=== PATIENT | female | born 1960 | race Caucasian/White ===

== ENCOUNTER 2017-11-23 07:34 | Emergency (ER) | payer OTHER ==
[~2017-11-23] VITALS: Ht 165.1 cm; Wt 102.5 kg
[~2017-11-23 07:34] MED LIST: ALBU90OI; ALBU90OI6 INH; ALBU90OI61 INH; ASPI81EC; Advair Hfa 230-12 GM INH; C-PAP; C-PAP AT NIGHT; CETI10; CETI10 PO; CHOL10002 PO; CLIN300 PO; CLON.5; CONESTTC PV; DICY20; DICY20 PO; DIPATR PO; DULO60 PO; ERGO50000 PO; ESTR.75 PO; FLUT110OIA; FLUT110OIA IH; GLIP10 PO; HYDACE10B PO; INSULANI SUBQ; LEVSOD100; LEVSOD88; LEVSOD88 PO; LISI10; LISI5 PO; METF500; METF500 PO; METO50ER PO; MONT10T PO; MORP15ER PO; NAPR500 PO; NEBI10 PO; ONDA8ODT MM; OXYACE5T PO; OXYC10ER PO; PANT20 PO; PANT40; PARO20; PROACE100; PROP20; QUET25; ROPI1 PO; ROPI2 PO; ROSI2; SALM50IP; SCOPTP TOP; TESTOSTERONE; TIZA4; TIZA4 PO; TRAM50; TRIAOI; TRIM100 PO; VICTOZA; VYTORIN 10/20 MG; ZOLM2.5; ZOLM2.5 PO; Zofran4 MG PO; [UNRECOGNIZED DRUG - OTHER]; [UNRECOGNIZED DRUG - OTHER]; [UNRECOGNIZED DRUG - OTHER] PO; [UNRECOGNIZED DRUG - SUPPLY]
[2017-11-23 08:12] LABS: Source, Urine Clean Catch
[2017-11-23 08:22] LABS: BASOPHILS ABSOLUTE AUTO 0.05 K/mm3 (0.00-0.23); BASOPHILS PERCENT AUTO 0 % (0-2); EOSINOPHILS ABSOLUTE AUTO 0.37 K/mm3 (0.00-0.68); EOSINOPHILS PERCENT AUTO 2 % (0-6); Hemoglobin 18.5 g/dL (11.5-16.0); IMMATURE GRAN ABSOLUTE AUTO 0.09 K/mm3 (0.00-0.10); IMMATURE GRAN PERCENT AUTO 1 % (0-1); LYMPHOCYTES ABSOLUTE AUTO 5.25 K/mm3 (0.84-5.20); LYMPHOCYTES PERCENT AUTO 31 % (21-46); MONOCYTES PERCENT AUTO 7 % (4-13); Mean Corpuscular HGB 29.6 pg (26.0-34.0); Mean Corpuscular HGB Conc 33.5 g/dL (31.5-36.5); Mean Corpuscular Volume 89 fL (80-100); Mean Platelet Volume 8.9 fL (9.1-12.4); NEUTROPHILS ABSOLUTE AUTO 10.19 K/mm3 (1.96-9.15); NEUTROPHILS PERCENT AUTO 60 % (41-73); Platelet Count 330 K/mm3 (150-400); RDW Coefficient Variation 12.7 % (11.7-14.2); RDW Standard Deviation 41.2 fL (35.1-46.3); Red Blood Cell Count 6.24 M/mm3 (3.80-5.20); White Blood Cell Count 17.05 K/mm3 (4.00-11.30)
[2017-11-23 08:23] LABS: Blood, Urine 1+ (Neg); Glucose Qualitative, Urine 4+ (Neg); Ketones, Urine 3+ (Neg); Leukocyte Esterase, Urine 1+ (Neg); Nitrite, Urine Neg (Neg); Protein, Urine 3+ (Neg); Urobilinogen, Urine 1+ (Normal)
[2017-11-23 08:24] LABS: Hematocrit 55.2 % (33.0-51.0)
[2017-11-23 08:36] LABS: Appearance, Urine Clear (Clear); Bilirubin, Urine 1+ (Neg); Color, Urine Yellow (P-Yellow)
[2017-11-23 08:37] LABS: Bacteria Few /hpf; Mucus Light (0-Heavy); Red Blood Cells, Urine Not Seen /hpf (0-2); Squamous Epithelial Cells Few /hpf (Few)
[2017-11-23 08:39] LABS: Alanine Aminotransfer (ALT/SGP 42 U/L (12-78); Albumin, Blood 2.9 g/dL (3.4-5.0); Albumin/Globulin Ratio 0.7 (0.8-1.8); Alk Phos 111 U/L (50-136); Anion Gap 13 mmol/L (6-16); Aspartate Aminotrans (AST/SGOT 25 U/L (12-37); Bilirubin, Total 0.7 mg/dL (0.1-1.0); Blood Urea Nitrogen 15 mg/dL (8-24); Bun/Creatinine Ratio 18.6 (12.0-20.0); CO2, Blood 23 mmol/L (21-32); Calcium, Blood 8.9 mg/dL (8.5-10.1); Chloride, Blood 99 mmol/L (98-108); Creatinine, Blood 0.81 mg/dL (0.40-1.00); Globulin, Blood 4.4 g/dL (2.2-4.0); Glomerular Filtration Rate >60 (60-); Glucose, Blood 364 mg/dL (70-99); Potassium, Blood 4.3 mmol/L (3.5-5.5); Sodium, Blood 135 mmol/L (136-145); Total Protein, Blood 7.3 g/dL (6.4-8.2)
[2017-11-23] MEDS ORDERED: Zofran8 MG PO (10:11)
[2017-11-23] MEDS ORDERED: LOPE2C PO (10:11)
== END 2017-11-23 10:44 | disposition home or self-care (01) ==
LOC: ER 07:34
PROVIDERS: Emergency Medicine
DX: E86.0 Dehydration (principal); R11.2 Nausea with vomiting, unspecified; R19.7 Diarrhea, unspecified; Z88.0 Allergy status to penicillin; Z88.8 Allergy status to other drugs, medicaments and biological substances; Z91.030 Bee allergy status; Z88.2 Allergy status to sulfonamides; Z91.040 Latex allergy status; Z79.899 Other long term (current) drug therapy; Z79.891 Long term (current) use of opiate analgesic; E11.9 Type 2 diabetes mellitus without complications; E03.9 Hypothyroidism, unspecified
CPT/HCPCS: 36415; 80053; 81001; 83690; 85025; 87086; 96361; 96374; 96375; 99284; J1200; J2060; J2405; J2765; J3010; J7030; J7120

== ENCOUNTER → 2018-08-08 | Outpatient (CLI) | payer OTHER ==
[~2018-08-08] MED LIST changes: +LOPE2C PO; +Zofran8 MG PO
== END | disposition home or self-care (01) ==
LOC: LAB EV 15:53 → LAB SHORT 15:53
DX: N39.0 Urinary tract infection, site not specified (principal)
CPT/HCPCS: 87086

== ENCOUNTER 2018-12-22 08:58 | Day surgery (SDC) | payer OTHER ==
[~2018-12-22] VITALS: Ht 165.1 cm; Wt 103.6 kg
[~2018-12-22 08:58] MED LIST changes: +GABA100; +GLIP10; +Humalog Mi100 UNIT/4; +INSULANPEN; +Imitrex100 MG; +TOPROL XL200 MG; +Zanaflex4 M1
--- NOTE | 2018-12-22 09:47 | NUR ---
12/22/18 0947 Olga Waddell 3 IV ATTEMPTS FIRST IN RIGHT HAND INFILTRATED SECOND IN RIGHT FOREARM INFILTRATED THIRD IN RIGHT FOREARM SUCCESSFUL
== END 2018-12-22 11:14 | disposition home or self-care (01) ==
LOC: ORSCSDS 08:58
PROVIDERS: Surgery
PROC: 0DJD8ZZ Inspection of Lower Intestinal Tract, Via Natural or Artificial Opening Endoscopic (ICD-10-PCS; principal; 2018-12-22 10:15)
DX: Z12.11 Encounter for screening for malignant neoplasm of colon (principal); Z86.010 Personal history of colon polyps; I10 Essential (primary) hypertension; E11.9 Type 2 diabetes mellitus without complications; G47.33 Obstructive sleep apnea (adult) (pediatric); E66.01 Morbid (severe) obesity due to excess calories; Z68.38 Body mass index [BMI] 38.0-38.9, adult; Z79.84 Long term (current) use of oral hypoglycemic drugs; Z79.899 Other long term (current) drug therapy
CPT/HCPCS: 82947; J2704; J7120

== ENCOUNTER 2019-03-25 11:21 | Emergency (ER) | payer OTHER ==
[~2019-03-25] VITALS: Ht 165.1 cm; Wt 104.3 kg
[2019-03-25 12:08] LABS: Source, Urine Clean Catch
[2019-03-25 12:10] LABS: Bilirubin, Urine Neg (Neg); Blood, Urine Neg (Neg); Glucose Qualitative, Urine 4+ (Neg); Ketones, Urine Neg (Neg); Leukocyte Esterase, Urine Neg (Neg); Nitrite, Urine Neg (Neg); Protein, Urine Neg (Neg); Urobilinogen, Urine NORM (Normal)
[2019-03-25 12:25] LABS: Appearance, Urine Clear (Clear); Color, Urine Yellow (P-Yellow)
[2019-03-25] MEDS ORDERED: KETO10 PO (13:10)
[2019-03-25] MEDS ORDERED: HYDR1TAB94 PO (13:10)
[2019-03-25] MEDS ORDERED: Robaxin-750750 MG PO (13:10)
== END 2019-03-25 13:16 | disposition home or self-care (01) ==
LOC: ER 11:21
PROVIDERS: Physician Assistant
DX: M62.830 Muscle spasm of back (principal); E11.9 Type 2 diabetes mellitus without complications; E03.9 Hypothyroidism, unspecified; Z88.0 Allergy status to penicillin; Z88.1 Allergy status to other antibiotic agents; Z88.2 Allergy status to sulfonamides; Z91.030 Bee allergy status; Z91.040 Latex allergy status; Z88.8 Allergy status to other drugs, medicaments and biological substances; Z79.4 Long term (current) use of insulin; Z79.899 Other long term (current) drug therapy
CPT/HCPCS: 51798; 72070; 72100; 81003; 96372; 99283-25; J1885

== ENCOUNTER 2019-04-03 17:59 | Emergency (ER) | payer OTHER ==
[~2019-04-03] VITALS: Ht 167.6 cm; Wt 105.2 kg
[~2019-04-03 17:59] MED LIST changes: +HYDR1TAB94 PO; +KETO10 PO; +Robaxin-750750 MG PO
[2019-04-03] MEDS ORDERED: BACL10 PO (19:48)
[2019-04-03] MEDS ORDERED: PRED20 PO (19:55)
[2019-04-03] MEDS ORDERED: Robaxin-750750 MG PO (19:55)
== END 2019-04-03 20:20 | disposition home or self-care (01) ==
LOC: ER 17:59
DX: M54.16 Radiculopathy, lumbar region (principal); Z88.0 Allergy status to penicillin; Z88.1 Allergy status to other antibiotic agents; Z91.030 Bee allergy status; Z91.040 Latex allergy status; Z88.2 Allergy status to sulfonamides; Z88.8 Allergy status to other drugs, medicaments and biological substances; Z79.899 Other long term (current) drug therapy; Z79.891 Long term (current) use of opiate analgesic; Z79.4 Long term (current) use of insulin; E11.9 Type 2 diabetes mellitus without complications; E03.9 Hypothyroidism, unspecified
CPT/HCPCS: 96372; 99283-25; J1885; J7512

== ENCOUNTER → 2019-10-06 | Outpatient (CLI) | payer OTHER ==
[~2019-10-06] MED LIST changes: +BACL10 PO; +PRED20 PO
== END ==
LOC: LAB 14:16 → LAB SHORT 14:16 → LAB FUT 10-05 15:00
DX: A04.72 Enterocolitis due to Clostridium difficile, not specified as recurrent (principal)
CPT/HCPCS: 87493; 89055

== ENCOUNTER 2021-06-06 09:40 | Emergency (ER) | payer MEDICARE, BC ==
[~2021-06-06] VITALS: Ht 167.6 cm; Wt 123.4 kg
[2021-06-06 10:38] LABS: Base Excess Venous 0.3 mmol/L; Bicarbonate Venous 25.7 mmol/L (24.0-30.0); PCO2 Venous 28.6 mmHg (38-42); PO2 Venous 142 mmHg (38-42); pH Blood Venous 7.52 (7.34-7.37)
[2021-06-06 10:58] LABS: Alanine Aminotransfer (ALT/SGP 27 U/L (12-78); Albumin, Blood 2.9 g/dL (3.4-5.0); Albumin/Globulin Ratio 0.7 (0.8-1.8); Alk Phos 115 U/L (50-136); Anion Gap 4 mmol/L (6-16); Aspartate Aminotrans (AST/SGOT 42 U/L (12-37); Bilirubin, Total 0.6 mg/dL (0.1-1.0); Blood Urea Nitrogen 12 mg/dL (8-24); Bun/Creatinine Ratio 19.4 (12.0-20.0); CO2, Blood 28 mmol/L (21-32); Calcium, Blood 9.3 mg/dL (8.5-10.1); Chloride, Blood 106 mmol/L (98-108); Creatinine, Blood 0.62 mg/dL (0.40-1.00); Globulin, Blood 4.1 g/dL (2.2-4.0); Glomerular Filtration Rate >60 (60-); Glucose, Blood 113 mg/dL (70-99); Potassium, Blood 3.9 mmol/L (3.5-5.5); Sodium, Blood 138 mmol/L (136-145); Thyroid Stimulating Hormone 0.653 uIU/mL (0.360-4.800); Troponin I <0.015 ng/mL (0.000-0.040)
[2021-06-06 11:27] LABS: BASOPHILS ABSOLUTE AUTO 0.04 K/mm3 (0.00-0.23); BASOPHILS PERCENT AUTO 1 % (0-2); EOSINOPHILS ABSOLUTE AUTO 0.17 K/mm3 (0.00-0.68); EOSINOPHILS PERCENT AUTO 2 % (0-6); Hematocrit 41.7 % (33.0-51.0); Hemoglobin 13.7 g/dL (11.5-16.0); IMMATURE GRAN ABSOLUTE AUTO 0.01 K/mm3 (0.00-0.10); IMMATURE GRAN PERCENT AUTO 0 % (0-1); LYMPHOCYTES ABSOLUTE AUTO 3.13 K/mm3 (0.84-5.20); LYMPHOCYTES PERCENT AUTO 40 % (21-46); MONOCYTES ABSOLUTE AUTO 0.57 K/mm3 (0.16-1.47); MONOCYTES PERCENT AUTO 7 % (4-13); Mean Corpuscular HGB 28.2 pg (26.0-34.0); Mean Corpuscular HGB Conc 32.9 g/dL (31.5-36.5); Mean Corpuscular Volume 86 fL (80-100); Mean Platelet Volume 9.4 fL (9.1-12.4); NEUTROPHILS ABSOLUTE AUTO 3.91 K/mm3 (1.96-9.15); NEUTROPHILS PERCENT AUTO 50 % (41-73); Platelet Count 256 K/mm3 (150-400); RDW Standard Deviation 44.5 fL (35.1-46.3); Red Blood Cell Count 4.85 M/mm3 (3.80-5.20); White Blood Cell Count 7.83 K/mm3 (4.00-11.30)
== END 2021-06-06 14:15 | disposition home or self-care (01) ==
LOC: ER 09:40
PROVIDERS: Emergency Medicine
DX: F41.9 Anxiety disorder, unspecified (principal); E11.9 Type 2 diabetes mellitus without complications; E03.9 Hypothyroidism, unspecified; Z79.899 Other long term (current) drug therapy; Z88.0 Allergy status to penicillin; Z88.2 Allergy status to sulfonamides; Z88.8 Allergy status to other drugs, medicaments and biological substances
CPT/HCPCS: 36415; 71046; 71260; 80053; 82803; 83880; 84443; 84484; 85025; 85379; 93005; 93010; 99285-25; J7030; Q9967

== ENCOUNTER → 2021-07-20 | Outpatient (CLI) | payer MEDICARE, BC | END | disposition home or self-care (01) | LOC: LAB 18:22 → LAB SHORT 18:22 | DX: R30.9 Painful micturition, unspecified (principal) | CPT/HCPCS: 87086 ==

== ENCOUNTER → 2021-08-10 | Outpatient (CLI) | payer MEDICARE, BC | END | disposition home or self-care (01) | LOC: LAB SHORT 10:29 | DX: R10.9 Unspecified abdominal pain (principal) | CPT/HCPCS: 87086 ==

== ENCOUNTER 2021-12-04 07:29 | Day surgery (SDC) | payer MEDICARE, BC ==
[~2021-12-04] VITALS: Ht 167.6 cm; Wt 116.1 kg
[~2021-12-04 07:29] MED LIST changes: +CEPH500 PO; +DIAZ2 PO; +METPRE4DP PO
[2021-12-04] MEDS ORDERED: CETI5 (08:00)
[2021-12-04] MEDS ORDERED: PIOG15 (08:00)
[2021-12-04] MEDS ORDERED: Cyclobenzaprine5 MG (08:01)
[2021-12-04] MEDS ORDERED: TRULANCE3 MG (08:01)
[2021-12-04] MEDS ORDERED: DICLOFENAC SOD100 GM (08:01)
[2021-12-04] MEDS ORDERED: NOVOLIN 70100 UNIT/4 (08:01)
[2021-12-04] MEDS ORDERED: TOPI100 (08:02)
--- NOTE | 2021-12-04 09:53 | NUR ---
12/04/21 0953 Shayna Rojas LATE ENTRY DURING PROCEDURE PT HAD UNINTENTIONAL MOVEMENTS THROUGHOUT THE CASE. RN ASSISTED TO MAINTAIN LEG POSITION. PT WAS INFORMED THAT SHE MAY NOTE SOME REDNESS OR BRUSING. IN PRE AND POST OP PT HAD UNINTENTIONAL MOVEMENTS AT BASELINE. PT STATED THESE MOVEMENT ARE NORMAL FOR HER.
--- NOTE | 2021-12-04 09:53 | NUR ---
12/04/21 0953 Inez Butt PT BACK TO BASELINE REGARDING BACK AND HIP PAIN WELL RESTLESS LEG. PT ABLE TO SELF DRESS AND AMBULATE USING PERSONAL 3 WHEELED WALKER. NO QUESTIONS OR CONCERNS
== END 2021-12-04 09:46 | disposition home or self-care (01) ==
LOC: ORSCSDS 07:29
PROVIDERS: Student in an Organized Health Care Education/Training Program
PROC: 0DBK8ZX Excision of Ascending Colon, Via Natural or Artificial Opening Endoscopic, Diagnostic (ICD-10-PCS; principal; 2021-12-04 08:45)
PROC: 0DBM8ZX Excision of Descending Colon, Via Natural or Artificial Opening Endoscopic, Diagnostic (ICD-10-PCS; principal; 2021-12-04 08:45)
PROC: 0DBN8ZX Excision of Sigmoid Colon, Via Natural or Artificial Opening Endoscopic, Diagnostic (ICD-10-PCS; principal; 2021-12-04 08:45)
DX: R19.7 Diarrhea, unspecified (principal); D12.2 Benign neoplasm of ascending colon; D12.4 Benign neoplasm of descending colon; K57.30 Diverticulosis of large intestine without perforation or abscess without bleeding; E11.9 Type 2 diabetes mellitus without complications; I10 Essential (primary) hypertension; E03.9 Hypothyroidism, unspecified; G47.33 Obstructive sleep apnea (adult) (pediatric); J45.909 Unspecified asthma, uncomplicated; K21.9 Gastro-esophageal reflux disease without esophagitis; E78.5 Hyperlipidemia, unspecified; E66.9 Obesity, unspecified; Z68.41 Body mass index [BMI] 40.0-44.9, adult; Z79.4 Long term (current) use of insulin; Z79.899 Other long term (current) drug therapy
CPT/HCPCS: 82947; 88305; J2704; J7120

== ENCOUNTER → 2022-05-24 | Outpatient (CLI) | payer MEDICARE, BC ==
[~2022-05-24] MED LIST changes: +CETI5; +Cyclobenzaprine5 MG; +DICLOFENAC SOD100 GM; +NOVOLIN 70100 UNIT/4; +PIOG15; +Percocet 5-3251 EACH PO; +TOPI100; +TRULANCE3 MG
[2022-05-24 12:49] LABS: Source, Urine Clean Catch
[2022-05-24 14:06] LABS: Bacteria Mod /hpf; Red Blood Cells, Urine 0-2 /hpf (0-2); Squamous Epithelial Cells Few /hpf (Few)
== END ==
LOC: LAB 12:46 → LAB SHORT 12:46
PROVIDERS: Family Medicine
DX: R30.0 Dysuria (principal)
CPT/HCPCS: 81015; 87086

== ENCOUNTER 2022-06-19 04:44 | Emergency (ER) | payer MEDICARE, BC ==
[~2022-06-19] VITALS: Ht 157.5 cm; Wt 90.7 kg
[2022-06-19 05:46] LABS: BASOPHILS ABSOLUTE AUTO 0.04 K/mm3 (0.00-0.23); BASOPHILS PERCENT AUTO 0 % (0-2); EOSINOPHILS ABSOLUTE AUTO 0.33 K/mm3 (0.00-0.68); EOSINOPHILS PERCENT AUTO 3 % (0-6); Hematocrit 46.7 % (33.0-51.0); Hemoglobin 14.5 g/dL (11.5-16.0); IMMATURE GRAN ABSOLUTE AUTO 0.03 K/mm3 (0.00-0.10); IMMATURE GRAN PERCENT AUTO 0 % (0-1); LYMPHOCYTES ABSOLUTE AUTO 2.86 K/mm3 (0.84-5.20); LYMPHOCYTES PERCENT AUTO 28 % (21-46); MONOCYTES PERCENT AUTO 8 % (4-13); Mean Corpuscular HGB 27.1 pg (26.0-34.0); Mean Corpuscular Volume 87 fL (80-100); Mean Platelet Volume 8.7 fL (9.1-12.4); NEUTROPHILS ABSOLUTE AUTO 6.32 K/mm3 (1.96-9.15); NEUTROPHILS PERCENT AUTO 61 % (41-73); Platelet Count 289 K/mm3 (150-400); RDW Standard Deviation 47.6 fL (35.1-46.3); Red Blood Cell Count 5.35 M/mm3 (3.80-5.20); White Blood Cell Count 10.38 K/mm3 (4.00-11.30)
[2022-06-19 06:13] LABS: Albumin, Blood 3.4 g/dL (3.4-5.0); Albumin/Globulin Ratio 0.8 (0.8-1.8); Bilirubin, Total 0.7 mg/dL (0.1-1.0); Bun/Creatinine Ratio 15.2 (12.0-20.0); Calcium, Blood 10.1 mg/dL (8.5-10.1); Creatinine, Blood 0.79 mg/dL (0.40-1.00); Globulin, Blood 4.4 g/dL (2.2-4.0); Potassium, Blood 4.1 mmol/L (3.5-5.5); Thyroid Stimulating Hormone 1.16 uIU/mL (0.360-4.800); Total Protein, Blood 7.8 g/dL (6.4-8.2)
[2022-06-19] MEDS ORDERED: ELIQUIS5 M2 PO (06:48)
[2022-06-19] MEDS ORDERED: TRULICITY1.5 MG/0.1 INJ (06:50)
== END 2022-06-19 07:00 | disposition home or self-care (01) ==
LOC: ER 04:44
PROVIDERS: Student in an Organized Health Care Education/Training Program
DX: M54.9 Dorsalgia, unspecified (principal); R53.1 Weakness; E03.9 Hypothyroidism, unspecified; E11.9 Type 2 diabetes mellitus without complications; Z88.0 Allergy status to penicillin; Z88.1 Allergy status to other antibiotic agents; Z88.5 Allergy status to narcotic agent; Z88.8 Allergy status to other drugs, medicaments and biological substances; Z91.030 Bee allergy status; Z79.890 Hormone replacement therapy; Z79.899 Other long term (current) drug therapy; Z79.4 Long term (current) use of insulin
CPT/HCPCS: 36415; 72125; 72128; 72132; 80053; 83735; 84443; 85025; J1885; J3010; Q9967

== ENCOUNTER → 2022-10-11 | Outpatient (CLI) | payer MEDICARE, BC ==
[~2022-10-11] MED LIST changes: +ELIQUIS5 M2 PO; +TRULICITY1.5 MG/0.1 INJ
[2022-10-11 14:28] LABS: BASOPHILS ABSOLUTE AUTO 0.03 K/mm3 (0.00-0.23); BASOPHILS PERCENT AUTO 0 % (0-2); EOSINOPHILS PERCENT AUTO 4 % (0-6); Hematocrit 49.1 % (33.0-51.0); Hemoglobin 16.2 g/dL (11.5-16.0); IMMATURE GRAN ABSOLUTE AUTO 0.02 K/mm3 (0.00-0.10); IMMATURE GRAN PERCENT AUTO 0 % (0-1); LYMPHOCYTES ABSOLUTE AUTO 2.45 K/mm3 (0.84-5.20); LYMPHOCYTES PERCENT AUTO 27 % (21-46); MONOCYTES ABSOLUTE AUTO 0.55 K/mm3 (0.16-1.47); MONOCYTES PERCENT AUTO 6 % (4-13); Mean Corpuscular HGB 28.3 pg (26.0-34.0); Mean Corpuscular Volume 86 fL (80-100); Mean Platelet Volume 8.4 fL (9.1-12.4); NEUTROPHILS ABSOLUTE AUTO 5.65 K/mm3 (1.96-9.15); NEUTROPHILS PERCENT AUTO 62 % (41-73); Platelet Count 252 K/mm3 (150-400); RDW Coefficient Variation 13.4 % (11.7-14.2); RDW Standard Deviation 41.6 fL (35.1-46.3); Red Blood Cell Count 5.73 M/mm3 (3.80-5.20)
[2022-10-11 14:38] LABS: Albumin, Blood 3.8 g/dL (3.4-5.0); Albumin/Globulin Ratio 0.8 (0.8-1.8); Bilirubin, Total 0.6 mg/dL (0.1-1.0); Bun/Creatinine Ratio 12.5 (12.0-20.0); Calcium, Blood 9.8 mg/dL (8.5-10.1); Creatinine, Blood 0.96 mg/dL (0.40-1.00); Globulin, Blood 4.8 g/dL (2.2-4.0); Potassium, Blood 4.6 mmol/L (3.5-5.5); Total Protein, Blood 8.6 g/dL (6.4-8.2)
== END | disposition home or self-care (01) ==
LOC: LAB SHORT 14:22 → LAB 14:22
PROVIDERS: Emergency Medicine
DX: R10.11 Right upper quadrant pain (principal)
CPT/HCPCS: 80053; 83690; 85025

== ENCOUNTER → 2022-10-21 | Outpatient (CLI) | payer MEDICARE, BC | LOC: LAB 12:45 → LAB SHORT 12:45 | DX: R30.0 Dysuria (principal) | CPT/HCPCS: 87086 ==

== ENCOUNTER 2022-11-01 11:44 | Day surgery (SDC) | payer MEDICARE, BC ==
[~2022-11-01] VITALS: Ht 167.6 cm; Wt 122.0 kg
== END 2022-11-01 13:59 | disposition home or self-care (01) ==
LOC: ORSCSDS 11:44
PROVIDERS: Internal Medicine Gastroenterology
PROC: 0DJ08ZZ Inspection of Upper Intestinal Tract, Via Natural or Artificial Opening Endoscopic (ICD-10-PCS; principal; 2022-11-01 13:45)
DX: R13.10 Dysphagia, unspecified (principal); K21.9 Gastro-esophageal reflux disease without esophagitis; E11.9 Type 2 diabetes mellitus without complications; E03.9 Hypothyroidism, unspecified; K58.0 Irritable bowel syndrome with diarrhea; E78.5 Hyperlipidemia, unspecified; J45.909 Unspecified asthma, uncomplicated; I10 Essential (primary) hypertension; G47.33 Obstructive sleep apnea (adult) (pediatric); E66.9 Obesity, unspecified; Z68.41 Body mass index [BMI] 40.0-44.9, adult; Z79.899 Other long term (current) drug therapy
CPT/HCPCS: 82947; J0330; J0461; J2001; J2250; J2405; J2704; J7120; Q9968

== ENCOUNTER 2022-12-19 12:01 | Day surgery (SDC) | payer MEDICARE, OTHER | END 2022-12-19 12:15 | disposition home or self-care (01) | LOC: ORSCSDS 12:01 | DX: R13.10 Dysphagia, unspecified (principal); Z53.9 Procedure and treatment not carried out, unspecified reason | CPT/HCPCS: J2704; J7120 ==

== ENCOUNTER → 2023-03-27 | Outpatient (CLI) | payer MEDICARE ==
[2023-03-27 13:44] LABS: Source, Urine Voided
[2023-03-27 14:40] LABS: Bacteria Many /hpf; Squamous Epithelial Cells Rare /hpf (Few)
== END | disposition home or self-care (01) ==
LOC: LAB SHORT 09:20 → LAB 09:20
PROVIDERS: Family Medicine
DX: R30.9 Painful micturition, unspecified (principal)
CPT/HCPCS: 81015; 87077; 87086; 87186

== ENCOUNTER 2023-08-26 02:21 | Emergency (ER) | payer OTHER ==
[~2023-08-26] VITALS: Ht 167.6 cm; Wt 125.2 kg
[2023-08-26] MEDS ORDERED: XARELTO20 MG PO (02:42)
[2023-08-26] MEDS ORDERED: Flomax0.4 MG PO (02:42)
[2023-08-26] MEDS ORDERED: Bentyl10 MG PO (02:45)
[2023-08-26] MEDS ORDERED: NOVOLIN R100 UNIT/2 SQ (02:45)
[2023-08-26 03:54] LABS: Source, Urine Clean Catch
[2023-08-26 04:00] VITALS: BP 124/84
[2023-08-26] MEDS ORDERED: PRED20 PO (04:06)
[2023-08-26 04:08] LABS: Bilirubin, Urine Neg (Neg); Blood, Urine 1+ (Neg); Glucose Qualitative, Urine 2+ (Neg); Ketones, Urine Neg (Neg); Leukocyte Esterase, Urine 2+ (Neg); Nitrite, Urine Neg (Neg); Protein, Urine 2+ (Neg); Urobilinogen, Urine NORM (Normal)
[2023-08-26 04:13] LABS: Appearance, Urine Hazy (Clear); Color, Urine Yellow (P-Yellow)
[2023-08-26 04:14] LABS: Red Blood Cells, Urine 0-2 /hpf (0-2); White Blood Cells, Urine 25-50 /hpf (0-5)
[2023-08-26 04:15] LABS: Amorphous Light (0-Heavy); Bacteria Mod /hpf; Squamous Epithelial Cells Mod /hpf (Few)
[2023-08-26] MEDS ORDERED: NITR100CA PO (04:32)
== END 2023-08-26 04:22 | disposition home or self-care (01) ==
LOC: ER 02:21
PROVIDERS: Physician Assistant
DX: N39.0 Urinary tract infection, site not specified (principal); E11.9 Type 2 diabetes mellitus without complications; E03.9 Hypothyroidism, unspecified
CPT/HCPCS: 81001; 87077; 87086; 87186; 96372; 99283-25; J1885; J2060; J7512

== ENCOUNTER 2023-12-13 21:34 | Observation (INO) | payer OTHER ==
[~2023-12-13] VITALS: Ht 167.6 cm; Wt 126.0 kg
[~2023-12-13 21:34] MED LIST changes: +Bentyl10 MG PO; +DULO60; +Flomax0.4 MG PO; -Imitrex100 MG; +Imitrex100 MG PO; +LEVSOD75 PO; +NITR100CA PO; +NOVOLIN R100 UNIT/2 SQ; -PIOG15; +PIOG30 PO; +XARELTO20 MG PO
[2023-12-13] MEDS ORDERED: ARIPIPRAZOLE10 M4 PO (21:49)
[2023-12-13] MEDS ORDERED: ROPINIROLE HCL2 M1 PO (21:50)
[2023-12-13] MEDS ORDERED: Toprol Xl200 MG (21:50)
[2023-12-13] MEDS ORDERED: BUPRENORP-NALO1 EAC3 SL (21:52)
[2023-12-13] MEDS ORDERED: ELIQUIS5 M3 PO (21:52)
[2023-12-13] MEDS ORDERED: ISOSORBIDE MONO30 MG PO (21:53)
[2023-12-13] MEDS ORDERED: HUMULIN R500 UNIT/1 SQ (21:53)
[2023-12-13 21:55] LABS: BASOPHILS ABSOLUTE AUTO 0.04 K/mm3 (0.00-0.23); BASOPHILS PERCENT AUTO 1 % (0-2); EOSINOPHILS ABSOLUTE AUTO 0.22 K/mm3 (0.00-0.68); EOSINOPHILS PERCENT AUTO 3 % (0-6); Hematocrit 47.2 % (33.0-51.0); Hemoglobin 15.9 g/dL (11.5-16.0); IMMATURE GRAN ABSOLUTE AUTO 0.02 K/mm3 (0.00-0.10); IMMATURE GRAN PERCENT AUTO 0 % (0-1); LYMPHOCYTES ABSOLUTE AUTO 3.49 K/mm3 (0.84-5.20); LYMPHOCYTES PERCENT AUTO 44 % (21-46); MONOCYTES ABSOLUTE AUTO 0.77 K/mm3 (0.16-1.47); MONOCYTES PERCENT AUTO 10 % (4-13); Mean Corpuscular HGB 29.4 pg (26.0-34.0); Mean Corpuscular HGB Conc 33.7 g/dL (31.5-36.5); Mean Corpuscular Volume 87 fL (80-100); Mean Platelet Volume 8.7 fL (9.1-12.4); NEUTROPHILS ABSOLUTE AUTO 3.36 K/mm3 (1.96-9.15); NEUTROPHILS PERCENT AUTO 43 % (41-73); Platelet Count 250 K/mm3 (150-400); RDW Coefficient Variation 13.2 % (11.7-14.2); Red Blood Cell Count 5.41 M/mm3 (3.80-5.20)
[2023-12-13 22:17] LABS: Albumin, Blood 3.4 g/dL (3.4-5.0); Albumin/Globulin Ratio 0.8 (0.8-1.8); Bilirubin, Total 0.5 mg/dL (0.1-1.0); Bun/Creatinine Ratio 32.5 (12.0-20.0); Calcium, Blood 9.4 mg/dL (8.5-10.1); Creatinine, Blood 0.95 mg/dL (0.40-1.00); Globulin, Blood 4.3 g/dL (2.2-4.0); Potassium, Blood 3.4 mmol/L (3.5-5.5); Thyroid Stimulating Hormone 1.19 uIU/mL (0.360-4.800); Total Protein, Blood 7.7 g/dL (6.4-8.2)
[2023-12-13] MEDS ORDERED: NS 1,000 ML IV SCH (23:05)
[2023-12-13 23:11] LABS: Magnesium, Blood 1.8 mg/dL (1.6-2.4)
[2023-12-14] MEDS ORDERED: Potassium Chloride 10 Meq Tablet SA PO ONE (00:10)
[2023-12-14] MEDS ORDERED: Acetaminophen 325 MG TABLET PO PRN (01:00)
[2023-12-14] MEDS ORDERED: Aspir 8181 MG PO ×2 (02:03→09:58)
[2023-12-14] MEDS ORDERED: TAMS.4ER PO (02:14)
[2023-12-14] MEDS ORDERED: Isosorbide Mono30 MG PO (02:14)
--- NOTE | 2023-12-14 02:57 | NUR ---
ARRIVAL PT ARRIVED TO PCU AT 0145, REPORT FROM HAMMAD MCCALLUM RN. PT ARRIVED VIA ER [facility], PT TRANSFERRED SBA WITH WALKER TO HOSPITAL BED. PT A&O X4, PLEASANT AND COOPERATIVE WITH CARE. MILD CONFUSION/FORGETFULNESS NOTED, PT STATES "MY MIND ISN'T THINKING OR WORKING". VSS; BP 103/62 (MAP OF 75), SR WITH HR OF 88, AFEBRILE, SPO2 94% ON RA, RR 18. PT DENIES CP/PRESSURE, SOB, DIZZINESS, N/V. PT DOES REPORT AND ENDORSE PALPITATIONS, STATES "I CAN FEEL MY HEART ACTING FUNNY OR I START TO FEEL KIND OF FUNNY". PT REPORTS CHRONIC PAIN. SKIN INTACT; EDEMA +2 IN RLE NOTED WITH REDNESS, SLIGHT WARMTH. LLE +1 EDEMA. PT STATES EDEMA "STARTED ABOUT A MONTH OR SO AGO, WENT TO THE DOCTOR AND THEY STARTED ME ON A WATER PILL". PT STATES IT HAS IMPROVED FROM PREVIOUS. PT ALSO C/O R HIP PAIN D/T RECENT GLF AT HOME. PT DENIES ISSUES GI/. PT ORIENTED TO ROOM AND CALL LIGHT. PT MADE COMFORTABLE, CALL LIGHT IN REACH AND PT ABLE TO VERBALIZE NEEDS.
[2023-12-14] MEDS ORDERED: Mag Sulfate 1 GM/D5% 100ML 100 ML IV STA (03:06)
[2023-12-14 04:00] VITALS: BP 109/59
[2023-12-14] MEDS ORDERED: Potassium Chloride 20 MEQ TabCR PO ONE (04:00)
[2023-12-14 04:30] LABS: BASOPHILS ABSOLUTE AUTO 0.05 K/mm3 (0.00-0.23); BASOPHILS PERCENT AUTO 1 % (0-2); EOSINOPHILS ABSOLUTE AUTO 0.19 K/mm3 (0.00-0.68); EOSINOPHILS PERCENT AUTO 2 % (0-6); Hematocrit 42.2 % (33.0-51.0); Hemoglobin 14.1 g/dL (11.5-16.0); IMMATURE GRAN ABSOLUTE AUTO 0.04 K/mm3 (0.00-0.10); IMMATURE GRAN PERCENT AUTO 1 % (0-1); LYMPHOCYTES ABSOLUTE AUTO 3.25 K/mm3 (0.84-5.20); LYMPHOCYTES PERCENT AUTO 40 % (21-46); MONOCYTES ABSOLUTE AUTO 0.77 K/mm3 (0.16-1.47); MONOCYTES PERCENT AUTO 10 % (4-13); Mean Corpuscular HGB 29.1 pg (26.0-34.0); Mean Corpuscular HGB Conc 33.4 g/dL (31.5-36.5); Mean Corpuscular Volume 87 fL (80-100); Mean Platelet Volume 8.9 fL (9.1-12.4); NEUTROPHILS PERCENT AUTO 47 % (41-73); Platelet Count 220 K/mm3 (150-400); RDW Coefficient Variation 13.2 % (11.7-14.2); RDW Standard Deviation 41.7 fL (35.1-46.3); Red Blood Cell Count 4.84 M/mm3 (3.80-5.20)
[2023-12-14 04:52] LABS: Albumin/Globulin Ratio 0.8 (0.8-1.8); Bilirubin, Total 0.7 mg/dL (0.1-1.0); Creatinine, Blood 0.85 mg/dL (0.40-1.00); Globulin, Blood 3.6 g/dL (2.2-4.0); International Normalized Ratio 1.03; Potassium, Blood 3.3 mmol/L (3.5-5.5); Total Protein, Blood 6.6 g/dL (6.4-8.2)
--- NOTE | 2023-12-14 06:21 | NUR ---
SHIFT SUMMARY PT REMAINS A&O X4. NO ACUTE CHANGES FROM ARRIVAL NOTE. PT REMAINS IN SR WITH RATE IN 80 - 90'S HOWEVER WITH MINIMAL ACTIVITY PT HAVING INCREASED HR TO 150'S. SEVERAL EVENTS ON TELEMETRY, PT NOT SUSTAINING THESE RATES - SEE TELE. NO REPORTED EVENTS OF VTACH THIS SHIFT. PT SYMPTOMATIC WITH EVENTS; DIAPHORETIC, DIZZY, PALPITATIONS. PT AFEBRILE, ON RA WITH SPO2 92-95%. SBP 100 - 1 TEENS, ALL MAPS GREATER THAN 65. NO REPORS OF CP/PRESSURE. PT REPORTING GENERAL CHRONIC PAIN AND ACUTE PAIN IN NECK, SHOULDER AND HIP FROM RECENT FALL AT HOME. MEDICATION PER OCT WITH SOME RELIEF; REST AND REPOSITIONING OFFERED WELL. PT SBA/STAND PIVOT TO BSC D/T HR AND SYMPTOMS WITH INCREASED HR. 1 GRAM MAGNESIUM PER EMAR AND MD ORDER, 20 MEQ KDUR ER. WILL UPDATE ZACH HOYOS
[2023-12-14] MEDS ORDERED: Insulin Regular 100 UNIT/ML 10ML Vial SC SCH (07:30)
[2023-12-14 08:03] VITALS: BP 117/74
[2023-12-14] MEDS ORDERED: Apixaban 5 MG Tab PO SCH (09:00)
[2023-12-14] MEDS ORDERED: Aspirin 81 MG Chew PO SCH (09:00)
[2023-12-14] MEDS ORDERED: TRULICITY4.5 MG/0.5 (10:07)
[2023-12-14] MEDS ORDERED: BUPRENORPHN-NA1 EAC2 SL (10:16)
[2023-12-14 11:39] VITALS: BP 125/69
--- NOTE | 2023-12-14 17:12 | NUR ---
DISCHARGE: PT HAS BEEN CLEARED FOR DISCHARGE HOME. PT DRESSES SELF. ALL IV ACCESS DC'd WNL. PT PROVIDED W/DC PAPERWORK AND INSTRUCTIONS, V/U. PT ASSISTED FROM UNIT VIA W/C W/OUT INCIDENT.
== END 2023-12-14 16:56 | disposition home or self-care (01) ==
LOC: ER 21:34 → PCU 21:35
PROVIDERS: Emergency Medicine; ADMIT Student in an Organized Health Care Education/Training Program
DX: R55 Syncope and collapse (principal); E87.6 Hypokalemia; E03.9 Hypothyroidism, unspecified; E66.01 Morbid (severe) obesity due to excess calories; I48.0 Paroxysmal atrial fibrillation; E11.42 Type 2 diabetes mellitus with diabetic polyneuropathy; F32.9 Major depressive disorder, single episode, unspecified; K21.9 Gastro-esophageal reflux disease without esophagitis; G89.4 Chronic pain syndrome; G25.81 Restless legs syndrome; G47.33 Obstructive sleep apnea (adult) (pediatric); I25.10 Atherosclerotic heart disease of native coronary artery without angina pectoris; I10 Essential (primary) hypertension; J45.909 Unspecified asthma, uncomplicated; E86.0 Dehydration; E78.5 Hyperlipidemia, unspecified; Z91.040 Latex allergy status; Z79.01 Long term (current) use of anticoagulants; Z79.4 Long term (current) use of insulin; Z79.890 Hormone replacement therapy; Z79.899 Other long term (current) drug therapy; Z88.0 Allergy status to penicillin; Z88.2 Allergy status to sulfonamides; Z88.8 Allergy status to other drugs, medicaments and biological substances; Z88.1 Allergy status to other antibiotic agents; Z91.030 Bee allergy status; Z68.41 Body mass index [BMI] 40.0-44.9, adult
CPT/HCPCS: 36415; 70450; 73502; 80053; 82947; 83036; 83735; 84443; 84484; 85025; 85610; 93005; 93010; 96365; 99285-25; A9270; C8929; G0378; J1815; J3475; J7030; Q9957

== ENCOUNTER 2024-02-14 16:36 | Emergency (ER) | payer OTHER ==
[~2024-02-14] VITALS: Ht 167.6 cm; Wt 116.1 kg
[~2024-02-14 16:36] MED LIST changes: +ARIPIPRAZOLE10 M4 PO; +Aspir 8181 MG PO; +BUPRENORP-NALO1 EAC3 SL; +BUPRENORPHN-NA1 EAC2 SL; +ELIQUIS5 M3 PO; +HUMULIN R500 UNIT/1 SQ; +ISOSORBIDE MONO30 MG PO; +Isosorbide Mono30 MG PO; +ROPINIROLE HCL2 M1 PO; +TAMS.4ER PO; +TRULICITY4.5 MG/0.5; +Toprol Xl200 MG
[2024-02-14 16:46] VITALS: BP 125/87
[2024-02-14 17:37] LABS: Influenza A, PCR NEGATIVE (NEGATIVE); Influenza B, PCR NEGATIVE (NEGATIVE); Resp Syncytial Virus, PCR NEGATIVE (NEGATIVE); SARS-Cov-2 (COVID-19) PCR, MMC NEGATIVE (NEGATIVE)
[2024-02-15] MEDS ORDERED: ONDA4ODT MM (10:21)
== END 2024-02-14 19:49 | disposition left against medical advice (07) ==
LOC: ER 16:36
PROVIDERS: Student in an Organized Health Care Education/Training Program
DX: Z53.29 Procedure and treatment not carried out because of patient's decision for other reasons (principal)
CPT/HCPCS: 0241U; 99281

== ENCOUNTER 2024-02-15 07:56 | Emergency (ER) | payer OTHER ==
[~2024-02-15] VITALS: Ht 167.6 cm; Wt 114.3 kg
[2024-02-15 08:29] LABS: BASOPHILS ABSOLUTE AUTO 0.02 K/mm3 (0.00-0.23); BASOPHILS PERCENT AUTO 0 % (0-2); EOSINOPHILS ABSOLUTE AUTO 0.51 K/mm3 (0.00-0.68); EOSINOPHILS PERCENT AUTO 6 % (0-6); Hematocrit 49.1 % (33.0-51.0); Hemoglobin 16.4 g/dL (11.5-16.0); IMMATURE GRAN ABSOLUTE AUTO 0.03 K/mm3 (0.00-0.10); IMMATURE GRAN PERCENT AUTO 0 % (0-1); LYMPHOCYTES ABSOLUTE AUTO 2.88 K/mm3 (0.84-5.20); LYMPHOCYTES PERCENT AUTO 34 % (21-46); MONOCYTES ABSOLUTE AUTO 0.76 K/mm3 (0.16-1.47); MONOCYTES PERCENT AUTO 9 % (4-13); Mean Corpuscular HGB Conc 33.4 g/dL (31.5-36.5); Mean Corpuscular Volume 87 fL (80-100); NEUTROPHILS ABSOLUTE AUTO 4.34 K/mm3 (1.96-9.15); NEUTROPHILS PERCENT AUTO 51 % (41-73); Platelet Count 225 K/mm3 (150-400); RDW Coefficient Variation 14.2 % (11.7-14.2); RDW Standard Deviation 44.8 fL (35.1-46.3); Red Blood Cell Count 5.66 M/mm3 (3.80-5.20); White Blood Cell Count 8.54 K/mm3 (4.00-11.30)
[2024-02-15 08:49] LABS: Albumin, Blood 3.1 g/dL (3.4-5.0); Albumin/Globulin Ratio 0.8 (0.8-1.8); Bilirubin, Total 0.9 mg/dL (0.1-1.0); Bun/Creatinine Ratio 12.8 (12.0-20.0); Calcium, Blood 8.9 mg/dL (8.5-10.1); Creatinine, Blood 0.94 mg/dL (0.40-1.00); Globulin, Blood 3.8 g/dL (2.2-4.0); Potassium, Blood 3.5 mmol/L (3.5-5.5); Total Protein, Blood 6.9 g/dL (6.4-8.2)
[2024-02-15 08:49] LABS: Source, Urine Fem Cath
[2024-02-15 08:52] LABS: Appearance, Urine Hazy (Clear); Blood, Urine 5+ (Neg); Color, Urine Yellow (P-Yellow); Glucose Qualitative, Urine 4+ (Neg); Ketones, Urine 2+ (Neg); Leukocyte Esterase, Urine 1+ (Neg); Nitrite, Urine Neg (Neg); Protein, Urine 2+ (Neg); Specific Gravity, Urine 1.025 (1.003-1.022); Urobilinogen, Urine NORM (Normal)
[2024-02-15 09:00] LABS: Bilirubin, Urine 1+ (Neg)
[2024-02-15 09:01] LABS: Bacteria Many /hpf; Red Blood Cells, Urine TNTC /hpf (0-2); Renal Epithelial Rare /hpf (0-Rare); Squamous Epithelial Cells Few /hpf (Few)
[2024-02-15 09:02] LABS: Hyaline Casts 0-2 /lpf (0-2)
[2024-02-15] MEDS ORDERED: Ondansetron HCl 2 MG / ML 2ML Vial IV ONE (09:20)
[2024-02-15] MEDS ORDERED: ONDA4ODT MM (10:21)
[2024-02-15 10:44] VITALS: BP 109/64
== END 2024-02-15 10:43 | disposition home or self-care (01) ==
LOC: ER 07:56
PROVIDERS: Student in an Organized Health Care Education/Training Program
DX: R19.7 Diarrhea, unspecified (principal); R11.0 Nausea; E11.65 Type 2 diabetes mellitus with hyperglycemia; E03.9 Hypothyroidism, unspecified; G43.909 Migraine, unspecified, not intractable, without status migrainosus; I48.91 Unspecified atrial fibrillation; Z88.0 Allergy status to penicillin; Z88.1 Allergy status to other antibiotic agents; Z88.5 Allergy status to narcotic agent; Z91.030 Bee allergy status; Z88.2 Allergy status to sulfonamides; Z91.040 Latex allergy status; Z88.8 Allergy status to other drugs, medicaments and biological substances; Z79.899 Other long term (current) drug therapy; Z79.4 Long term (current) use of insulin
CPT/HCPCS: 80053; 81001; 85025; 87086; 96374-59; 99284-25; J2405; P9612

== ENCOUNTER → 2024-02-16 | Outpatient (CLI) | payer OTHER ==
[~2024-02-16] MED LIST changes: +ONDA4ODT MM
[2024-02-16 16:09] LABS: Adenovirus F 40/41 Not Detected (NOT DETECT); Astrovirus Not Detected (NOT DETECT); Campylobacter Sp Not Detected (NOT DETECT); Cryptosporidium Not Detected (NOT DETECT); Cyclospora Cayetanensis Not Detected (NOT DETECT); E. Coli O157 Not Detected (NOT DETECT); Entamoeba Histolytica Not Detected (NOT DETECT); Enteroaggregative E. coli-EAEC Not Detected (NOT DETECT); Enteropathogenic E. coli-EPEC Not Detected (NOT DETECT); Enterotoxigenic E. coli-ETEC Not Detected (NOT DETECT); Giardia Lamblia Not Detected (NOT DETECT); Norovirus GI/GII Not Detected (NOT DETECT); Plesiomonas Shigelloides Not Detected (NOT DETECT); Rotavirus A Not Detected (NOT DETECT); Salmonella Sp Not Detected (NOT DETECT); Sapovirus Not Detected (NOT DETECT); Shiga Toxin-prod E. coli-STEC Not Detected (NOT DETECT); Shigella/Enteroin E. coli-EIEC Not Detected (NOT DETECT); Vibrio Cholerae Not Detected (NOT DETECT); Vibrio Sp Not Detected (NOT DETECT); Yersinia Enterocolitica Not Detected (NOT DETECT)
== END | disposition home or self-care (01) ==
LOC: LAB 11:10 → LAB SHORT 11:10
PROVIDERS: Emergency Medicine
DX: R19.7 Diarrhea, unspecified (principal)
CPT/HCPCS: 87507

== ENCOUNTER → 2024-06-08 | Outpatient (CLI) | payer OTHER ==
[2024-06-08 13:22] LABS: Source, Urine Voided
[2024-06-08 13:25] LABS: Appearance, Urine Clear (Clear); Color, Urine Yellow (P-Yellow); Specific Gravity, Urine 1.015 (1.003-1.022)
[2024-06-08 13:26] LABS: Bilirubin, Urine Neg (Neg); Blood, Urine Neg (Neg); Glucose Qualitative, Urine Trace (Normal); Ketones, Urine Neg (Neg); Leukocyte Esterase, Urine Neg (Neg); Nitrite, Urine Neg (Neg); Protein, Urine Neg (Neg); Urobilinogen, Urine NORM (Normal)
== END | disposition home or self-care (01) ==
LOC: LAB 13:21 → LAB SHORT 13:21
PROVIDERS: Family Medicine
DX: R30.0 Dysuria (principal)
CPT/HCPCS: 81003

== ENCOUNTER → 2024-07-15 | Outpatient (CLI) | payer OTHER ==
[2024-07-15 14:01] LABS: Adenovirus F 40/41 Not Detected (NOT DETECT); Astrovirus Not Detected (NOT DETECT); Campylobacter Sp Not Detected (NOT DETECT); Cryptosporidium Not Detected (NOT DETECT); Cyclospora Cayetanensis Not Detected (NOT DETECT); E. Coli O157 Not Detected (NOT DETECT); Entamoeba Histolytica Not Detected (NOT DETECT); Enteroaggregative E. coli-EAEC Not Detected (NOT DETECT); Enteropathogenic E. coli-EPEC Not Detected (NOT DETECT); Enterotoxigenic E. coli-ETEC Not Detected (NOT DETECT); Giardia Lamblia Not Detected (NOT DETECT); Norovirus GI/GII Detected (NOT DETECT); Plesiomonas Shigelloides Not Detected (NOT DETECT); Rotavirus A Not Detected (NOT DETECT); Salmonella Sp Not Detected (NOT DETECT); Sapovirus Not Detected (NOT DETECT); Shiga Toxin-prod E. coli-STEC Not Detected (NOT DETECT); Shigella/Enteroin E. coli-EIEC Not Detected (NOT DETECT); Vibrio Cholerae Not Detected (NOT DETECT); Vibrio Sp Not Detected (NOT DETECT); Yersinia Enterocolitica Not Detected (NOT DETECT)
== END | disposition home or self-care (01) ==
LOC: LAB 10:05 → LAB SHORT 10:05
PROVIDERS: Internal Medicine Endocrinology, Diabetes & Metabolism
DX: R19.7 Diarrhea, unspecified (principal)
CPT/HCPCS: 87324; 87507

== ENCOUNTER → 2024-07-15 | Outpatient (CLI) | payer OTHER ==
[2024-07-19 08:57] LABS: CALPROTECTIN,FECAL 76 ug/g (<=49)
== END | disposition home or self-care (01) ==
LOC: LAB 09:46 → LAB SHORT 09:46
PROVIDERS: Internal Medicine Endocrinology, Diabetes & Metabolism
DX: R19.7 Diarrhea, unspecified (principal)
CPT/HCPCS: 83993

== ENCOUNTER → 2024-11-04 | Outpatient (CLI) | payer OTHER ==
[2024-11-07 11:01] LABS: BUPRENORPHINE GLUC,URN,QUANT 113 ng/mL; BUPRENORPHINE,URN,QUANT 2 ng/mL; NALOXONE,URN,QUANT <100 ng/mL; NORBUPRENORPHINE GLUC,UR,QUANT 291 ng/mL; NORBUPRENORPHINE,URN,QUANT 190 ng/mL
== END | disposition home or self-care (01) ==
LOC: LAB SHORT 10:14 → LAB 10:14
PROVIDERS: Family Medicine
DX: G89.4 Chronic pain syndrome (principal); Z79.899 Other long term (current) drug therapy
CPT/HCPCS: G0480

== ENCOUNTER 2024-12-17 08:02 | Day surgery (SDC) | payer OTHER ==
[~2024-12-17] VITALS: Ht 167.6 cm; Wt 111.5 kg
[~2024-12-17 08:02] MED LIST changes: +ACET500 PO; +ALBU90OI INH; +BENADRYL25 MG PO; +BUPRENORPHN-NA1 EACH; +CEFU500T30 PO; +Cyclobenzaprine5 MG PO; -DICLOFENAC SOD100 GM; +DICLOFENAC SOD100 GM TOP; +ETOD200; +FAMO40 PO; +Flonase 0.05% N16 GM; +GABA300 PO; +Lactated Ringer's 1,000 ML IV SCH; +TORSE20 PO; +Vitamin D1000 UNI1 PO; +ZYRTEC10 M2 PO
[2024-12-17 08:20] VITALS: BP 130/80
[2024-12-17] MEDS ORDERED: WARF1 PO ×2 (08:42→08:43)
--- NOTE | 2024-12-17 08:57 | NUR ---
12/17/24 0857 Jose Sauer MONITOR INTACT WITH CONTINUOUS PULSE OXIMETRY, CONTINUOUS END TITAL CO2, 3-LEAD EKG AND INTERMITTENT BLOOD PRESSURE.Bite Block Placed
[2024-12-17 09:48] VITALS: BP 102/68
[2024-12-17 10:00] VITALS: BP 105/87
[2024-12-17 10:14] VITALS: BP 107/73
--- NOTE | 2024-12-17 10:18 | NUR ---
DISCHARGE NOTE PT A&OX4, BREATHING RA, VSS, SON AT BEDSDIE, TOLERTING PO INTAKE. PT C/O MILD ABDOMINAL PAIN- ABDOMEN REMAINS SOFT AND NON TENDER. PT HAS NO OTHER COMPLAINTS. GLASSES ON PT. Discharge instructions reviewed with patient. Patient verbalizes understanding. Copy given to patient to take home. Discharged via wheelchair to private car for ride home. PT DISCHARGED WITH ALL BELONGINGS INCLUDING PERSONAL WALKER.
== END 2024-12-17 10:17 | disposition home or self-care (01) ==
LOC: ORSCMMR 08:02 → ORD 09:15 → ORSCMMR 09:15
PROVIDERS: Internal Medicine Gastroenterology
PROC: 0DBE8ZX Excision of Large Intestine, Via Natural or Artificial Opening Endoscopic, Diagnostic (ICD-10-PCS; principal; 2024-12-17 09:15)
PROC: 0DB98ZX Excision of Duodenum, Via Natural or Artificial Opening Endoscopic, Diagnostic (ICD-10-PCS; principal; 2024-12-17 09:15)
PROC: 0DB78ZX Excision of Stomach, Pylorus, Via Natural or Artificial Opening Endoscopic, Diagnostic (ICD-10-PCS; principal; 2024-12-17 09:15)
DX: R19.7 Diarrhea, unspecified (principal); R13.10 Dysphagia, unspecified; Z86.0101 Personal history of adenomatous and serrated colon polyps; K21.9 Gastro-esophageal reflux disease without esophagitis; K31.7 Polyp of stomach and duodenum; K57.30 Diverticulosis of large intestine without perforation or abscess without bleeding; I10 Essential (primary) hypertension; J45.909 Unspecified asthma, uncomplicated; E11.9 Type 2 diabetes mellitus without complications; E03.9 Hypothyroidism, unspecified; E66.9 Obesity, unspecified; Z68.39 Body mass index [BMI] 39.0-39.9, adult; Z79.899 Other long term (current) drug therapy; Z79.01 Long term (current) use of anticoagulants
CPT/HCPCS: 82947; 88305; J7120

== ENCOUNTER → 2025-02-10 | Outpatient (CLI) | payer OTHER ==
[~2025-02-10] MED LIST changes: -Lactated Ringer's 1,000 ML IV SCH; +WARF1 PO
[2025-02-10 13:14] LABS: Source, Urine Clean Catch
[2025-02-10 13:30] LABS: Bilirubin, Urine Neg (Neg); Color, Urine Yellow (P-Yellow); Glucose Qualitative, Urine Neg (Neg); Ketones, Urine Neg (Neg); Leukocyte Esterase, Urine 2+ (Neg); Protein, Urine 2+ (Neg); Specific Gravity, Urine 1.020 (1.003-1.022); Urobilinogen, Urine 1+ (Normal)
== END | disposition home or self-care (01) ==
LOC: LAB 13:13 → LAB SHORT 13:13
PROVIDERS: Family Medicine
DX: N39.0 Urinary tract infection, site not specified (principal)
CPT/HCPCS: 81001; 87077; 87086; 87186

== ENCOUNTER → 2025-07-25 | Outpatient (CLI) | payer OTHER ==
[~2025-07-25] MED LIST changes: +INSULANPEN SC; +OZEMPIC2 MG/0.75 SC; +REPATHA SU140 MG/1 M SC
[2025-07-25 14:56] LABS: BASOPHILS ABSOLUTE AUTO 0.06 K/mm3 (0.00-0.23); BASOPHILS PERCENT AUTO 1 % (0-2); EOSINOPHILS ABSOLUTE AUTO 0.49 K/mm3 (0.00-0.68); EOSINOPHILS PERCENT AUTO 8 % (0-6); Hematocrit 42.1 % (33.0-51.0); Hemoglobin 14.3 g/dL (11.5-16.0); IMMATURE GRAN ABSOLUTE AUTO 0.01 K/mm3 (0.00-0.10); IMMATURE GRAN PERCENT AUTO 0 % (0-1); LYMPHOCYTES ABSOLUTE AUTO 2.06 K/mm3 (0.84-5.20); LYMPHOCYTES PERCENT AUTO 32 % (21-46); MONOCYTES ABSOLUTE AUTO 0.52 K/mm3 (0.16-1.47); MONOCYTES PERCENT AUTO 8 % (4-13); Mean Corpuscular HGB Conc 34.0 g/dL (31.5-36.5); Mean Corpuscular Volume 88 fL (80-100); NEUTROPHILS ABSOLUTE AUTO 3.34 K/mm3 (1.96-9.15); NEUTROPHILS PERCENT AUTO 52 % (41-73); NRBC ABSOLUTE 0.00 K/mm3 (0.00-0.02); NRBC Auto 0.0 /100 WBC (0.0-0.2); Platelet Count 181 K/mm3 (150-400); RDW Coefficient Variation 12.7 % (11.7-14.2); RDW Standard Deviation 40.7 fL (35.1-46.3)
[2025-07-25 15:09] LABS: Alanine Aminotransfer (ALT/SGP 25.0 U/L (12-78); Albumin, Blood 3.1 g/dL (3.4-5.0); Albumin/Globulin Ratio 0.8 (0.8-1.8); Anion Gap 13.0 mmol/L (3-11); Aspartate Aminotrans (AST/SGOT 33.0 U/L (12-37); Bilirubin, Total 0.4 mg/dL (0.1-1.0); Blood Urea Nitrogen 8.0 mg/dL (8-24); CO2, Blood 26.0 mmol/L (21-32); Calcium, Blood 8.5 mg/dL (8.5-10.1); Chloride, Blood 102.0 mmol/L (98-108); Creatinine, Blood 0.92 mg/dL (0.40-1.00); Globulin, Blood 4.1 g/dL (2.2-4.0); Glucose, Blood 279.0 mg/dL (70-99); Potassium, Blood 4.4 mmol/L (3.5-5.5); Sodium, Blood 137.0 mmol/L (136-145); Total Protein, Blood 7.2 g/dL (6.4-8.2)
== END | disposition home or self-care (01) ==
LOC: LAB 14:49 → LAB SHORT 14:49
PROVIDERS: Physician Assistant
DX: R53.83 Other fatigue (principal)
CPT/HCPCS: 80053; 85025